=== PATIENT | female | born 1970 | race Two or more races ===

== ENCOUNTER 2025-05-17 22:23 | Inpatient (IN) | payer OTHER ==
[~2025-05-17] VITALS: Ht 152.4 cm; Wt 169.6 kg
--- NOTE | 2025-05-17 22:34 | NUR ---
PTE REFIERE INFLAMACION EN EXTREMIDADES INFERIORES, INAPETENCIA E ICTERICIA.
[2025-05-17] MEDS ORDERED: NITROGLYCERIN IN 5 % DEXTROSE 250 ML IV SCH (23:19)
[2025-05-17] MEDS ORDERED: 0.9 % SODIUM CHLORIDE 1,000 ML IV ONE (23:30)
[2025-05-17] MEDS ORDERED: NITROGLYCERIN IN 5 % DEXTROSE 50 MG/250 ML BOTTLE IV ONE (23:32)
[2025-05-18] MEDS ORDERED: LEVALBUTEROL HCL 0.63 MG/3 ML SOLUTION IH ONE (00:24)
[2025-05-18] MEDS ORDERED: LEVALBUTEROL HCL 1.25 MG/3 ML SOLUTION IH SCH ×2 (01:00→18:00)
[2025-05-18 01:20] LABS: BASO % 0.6 % (0.1-1.2); EOS # 0.03 (0.04-0.54); EOS % 0.4 % (0.7-7.0); LYMPH # 1.02 (1.18-3.74); LYMPH % 13.1 % (19.3-53.1); MEAN PLATELET VOLUME 11.00 fl (9.4-12.4); MONO # 0.89 (0.24-0.82); MONO % 11.4 % (4.7-12.5); NEUT # 5.38 (1.56-6.13); NEUT % 68.9 % (34.0-71.1); RED CELL DISTRIBUTION WIDTH 22.0 % (11.6-14.4)
--- NOTE | 2025-05-18 01:25 | NUR ---
PTE EVALUIADA POR EL LA MARCO SALINAS QUIEN ORDENA TRATAMIENTO LA CUAL SE EJECUTA. SE COMIENZA EN TRIDIL 50/250. SE MANTIENE BAJO OBSERVACION.
[2025-05-18 01:44] LABS: INR 1.46
[2025-05-18 01:51] LABS: BUN CREA RATIO 21.0 (7.0-25.0); CREATININE SERUM 1.57 mg/dL (0.55-1.02); GFR 34.2; GLUCOSE FASTING 85.0 mg/dL (65-100)
[2025-05-18 02:17] LABS: OSMOLALITY SERUM 256.0 MOSM/KG (275-295)
[2025-05-18 02:18] LABS: ALT/SGPT 240.0 U/L (12-78); AST/SGOT 573.0 U/L (15-37)
[2025-05-18 02:20] LABS: GLOBULINA 2.3 G/DL (2.4-3.5)
[2025-05-18 02:24] LABS: BILIRUBIN TOTAL 42.46 mg/dL (0.3-1.2)
[2025-05-18 02:26] LABS: BILIRUBIN,CONJUGATED 31.48 mg/dL (0.0-0.2)
[2025-05-18 02:59] LABS: BAND MAN 8.0 %; EOSINOPHIL MAN 1.0 %; LYMPHOCYTE MAN 15.0 %; MONOCYTE MAN 10.0 %; NEUTROPHILS MAN 66.0 %
[2025-05-18 05:56] LABS: URINE APPEARANCE Cloudy; URINE BILIRRUBIN Large (NEGATIVE); URINE BLOOD Negative; URINE COLOR Dark Yellow; URINE GLUCOSE Negative (NEGATIVE); URINE KETONE Negative (NEGATIVE); URINE LEUKOCYTE Trace; URINE NITRATE Negative; URINE PROTEIN Trace (NEGATIVE); URINE UROBILINOGEN 0.2 E.U./dl
[2025-05-18 05:59] LABS: URINE BACTERIA 21.5 uL (0.0-1933); URINE EPITHELIAL CELLS 12.7 uL (0.0-38.8); URINE RBC 19.6 uL (0.0-20.8); URINE WBC 6.3 uL (0.0-23.2)
[2025-05-18 06:01] LABS: URINE CAST 1.31 uL (0.0-1.40)
[2025-05-18] MEDS ORDERED: LIDOCAINE HCL 1% 10ML VIAL ONE (07:42)
[2025-05-18] MEDS ORDERED: LEVALBUTEROL HCL 1.25 MG/3 ML SOLUTION IH ONE (08:14)
--- NOTE | 2025-05-18 09:02 | NUR ---
PACIENTE CON OEDEN MEDICA DE TRIDIL Y LASIX, LA CUAL NO SE LE ADMINISTRA POR LA PRESIONES ARTERIALES BAJAS, SE NOTIFICA.
[2025-05-18 12:43] VITALS: BP 103/95
[2025-05-18] MEDS ORDERED: INSULIN LISPRO 1,000 UNIT/10 ML UNITS SUBCUTANEO PRN (12:45)
[2025-05-18] MEDS ORDERED: DEXTROSE 50 % IN WATER 0.5 G/ML DISP.SYRIN IV PRN (12:45)
[2025-05-18] MEDS ORDERED: GUAIFEN/DEXTROMETHORPHAN/PE 10 ML BLIST.PACK PO ONE (12:46)
[2025-05-18] MEDS ORDERED: MORPHINE SULFATE 2 MG/ML SYRINGE IV PRN (13:15)
[2025-05-18 14:25] LABS: COVID-19 AG NEGATIVE (NEGATIVE)
[2025-05-18 15:35] VITALS: BP 104/58; O2SAT 96
[2025-05-18] MEDS ORDERED: IPRATROPIUM BROMIDE 0.5 MG/2.5 ML AMPUL.NEB IH SCH (18:00)
[2025-05-18 18:05] VITALS: BP 108/72; O2SAT 95
[2025-05-18] MEDS ORDERED: MULTIVIT INFUSN,ADULT 4,VIT K 10 ML VIAL IV NR (19:00)
[2025-05-18] MEDS ORDERED: METOCLOPRAMIDE HCL 5 MG/ML VIAL IV SCH (21:00)
[2025-05-18] MEDS ORDERED: PANTOPRAZOLE SODIUM 40 MG/VIAL VIAL IV SCH (21:00)
[2025-05-18] MEDS ORDERED: INSULIN GLARGINE,HUM.REC.ANLOG 1,000 UNITS/10 ML UNITS SUBCUTANEO SCH (21:00)
[2025-05-19] VITALS (7 sets, daily range): BP systolic 86–95; BP diastolic 60–68; O2SAT 90–99
[2025-05-19] MEDS ORDERED: SPIRONOLACTONE 25 MG TABLET PO SCH (09:00)
[2025-05-19] MEDS ORDERED: MULTIVIT INFUSN,ADULT 4,VIT K 10 ML VIAL IV SCH (09:00)
[2025-05-19] MEDS ORDERED: VITAMIN B COMPLEX/LYSINE 15 ML BLIST.PACK PO SCH (09:00)
[2025-05-19] MEDS ORDERED: 0.9 % SODIUM CHLORIDE 1,000 ML IV SCH (09:00)
[2025-05-19 17:54] LABS: BASO % 0.3 % (0.1-1.2); EOS # 0.01 (0.04-0.54); EOS % 0.1 % (0.7-7.0); LYMPH # 0.87 (1.18-3.74); LYMPH % 10.0 % (19.3-53.1); MEAN PLATELET VOLUME 10.00 fl (9.4-12.4); MONO # 0.89 (0.24-0.82); MONO % 10.2 % (4.7-12.5); NEUT # 6.24 (1.56-6.13); NEUT % 71.8 % (34.0-71.1); RED CELL DISTRIBUTION WIDTH 22.0 % (11.6-14.4)
[2025-05-19 18:24] LABS: AST/SGOT 905.0 U/L (15-37); BUN CREA RATIO 15.0 (7.0-25.0); CREATININE SERUM 3.67 mg/dL (0.55-1.02); GFR 12.84; GLUCOSE FASTING 145.0 mg/dL (65-100)
[2025-05-19 18:53] LABS: BAND MAN 6.0 %; BASOPHIL MAN 2.0 %; METAMYELOCYTE 2.0 %; MONOCYTE MAN 7.0 %; MYELOCYTE 3.0 %; PROMYELOCYTE 1.0 %
[2025-05-19 18:56] LABS: LYMPHOCYTE MAN 9.0 %
[2025-05-19 19:00] LABS: NEUTROPHILS MAN 69.0 %
[2025-05-19 19:09] LABS: OSMOLALITY SERUM 264.0 MOSM/KG (275-295)
[2025-05-19 19:10] LABS: ALT/SGPT 295.0 U/L (12-78); GLOBULINA 1.6 G/DL (2.4-3.5)
[2025-05-19 19:32] LABS: BILIRUBIN TOTAL 42.95 mg/dL (0.3-1.2)
[2025-05-19] MEDS ORDERED: CLONAZEPAM 0.5 MG TABLET PO SCH (21:00)
[2025-05-20] VITALS (8 sets, daily range): BP systolic 92–115; BP diastolic 66–73; O2SAT 95–98
[2025-05-20 06:14] LABS: BASO % 0.5 % (0.1-1.2); EOS # 0.02 (0.04-0.54); EOS % 0.2 % (0.7-7.0); LYMPH # 0.97 (1.18-3.74); LYMPH % 11.8 % (19.3-53.1); MEAN PLATELET VOLUME 11.00 fl (9.4-12.4); MONO # 0.88 (0.24-0.82); MONO % 10.7 % (4.7-12.5); NEUT # 5.69 (1.56-6.13); NEUT % 69.1 % (34.0-71.1); RED CELL DISTRIBUTION WIDTH 22.3 % (11.6-14.4)
[2025-05-20 06:56] LABS: AST/SGOT 884.0 U/L (15-37); GLOBULINA 1.3 G/DL (2.4-3.5); GLUCOSE FASTING 112.0 mg/dL (65-100)
[2025-05-20 07:17] LABS: ALT/SGPT 280.0 U/L (12-78); BUN CREA RATIO 14.0 (7.0-25.0); GFR 10.52; OSMOLALITY SERUM 270.0 MOSM/KG (275-295)
[2025-05-20 07:19] LABS: BILIRUBIN TOTAL 41.66 mg/dL (0.3-1.2); CREATININE SERUM 4.36 mg/dL (0.55-1.02)
[2025-05-20 07:34] LABS: BAND MAN 6.0 %; EOSINOPHIL MAN 1.0 %; LYMPHOCYTE MAN 21.0 %; MONOCYTE MAN 9.0 %; NEUTROPHILS MAN 59.0 %
[2025-05-20] MEDS ORDERED: 0.9 % SODIUM CHLORIDE 1,000 ML IV SCH (09:00)
[2025-05-20] MEDS ORDERED: MORPHINE SULFATE 2 MG/ML SYRINGE IV PRN (16:45)
[2025-05-20] MEDS ORDERED: ZOLPIDEM TARTRATE 10 MG TABLET PO SCH (21:00)
[2025-05-21] VITALS (9 sets, daily range): BP systolic 92–98; BP diastolic 64–65; O2SAT 93–99
[2025-05-21 06:47] LABS: BASO % 0.2 % (0.1-1.2); EOS # 0.03 (0.04-0.54); EOS % 0.3 % (0.7-7.0); LYMPH # 0.97 (1.18-3.74); LYMPH % 10.3 % (19.3-53.1); MEAN PLATELET VOLUME 10.30 fl (9.4-12.4); MONO # 0.91 (0.24-0.82); MONO % 9.7 % (4.7-12.5); NEUT # 6.84 (1.56-6.13); NEUT % 73.0 % (34.0-71.1); RED CELL DISTRIBUTION WIDTH 22.5 % (11.6-14.4)
[2025-05-21 07:29] LABS: BAND MAN 9.0 %; LYMPHOCYTE MAN 18.0 %; METAMYELOCYTE 1.0 %; MONOCYTE MAN 3.0 %; NEUTROPHILS MAN 68.0 %
[2025-05-21 07:40] LABS: GLUCOSE FASTING 72.0 mg/dL (65-100); OSMOLALITY SERUM 268.0 MOSM/KG (275-295)
[2025-05-21 07:47] LABS: BUN CREA RATIO 14.0 (7.0-25.0); GFR 8.17
[2025-05-21 07:48] LABS: CREATININE SERUM 5.43 mg/dL (0.55-1.02)
[2025-05-21] MEDS ORDERED: PANTOPRAZOLE SODIUM 40 MG TABLET.DR PO SCH (21:00)
[2025-05-22] VITALS (8 sets, daily range): BP systolic 60–94; BP diastolic 48–49; O2SAT 91–98
[2025-05-23 00:13] VITALS: O2SAT 95
[2025-05-23] MEDS ORDERED: MORPHINE SULFATE 2 MG/ML SYRINGE IV PRN (00:30)
[2025-05-23 01:20] VITALS: BP 140/80; O2SAT 95
[2025-05-23 05:44] VITALS: O2SAT 96
[2025-05-23 06:48] VITALS: O2SAT 95
== END 2025-05-23 09:11 | disposition expired | DRG 436 ==
LOC: ER 22:23 → MEDJ 05-18 13:03
PROVIDERS: General Practice; Internal Medicine Nephrology; ADMIT Student in an Organized Health Care Education/Training Program; ATTEND Student in an Organized Health Care Education/Training Program
PROC: 3E0F7GC Introduction of Other Therapeutic Substance into Respiratory Tract, Via Natural or Artificial Opening (ICD-10-PCS; 2025-05-18)
PROC: 05HV33Z Insertion of Infusion Device into Left Face Vein, Percutaneous Approach (ICD-10-PCS; principal; 2025-05-19)
PROC: 4A12X4Z Monitoring of Cardiac Electrical Activity, External Approach (ICD-10-PCS; 2025-05-19)
DX: C78.7 Secondary malignant neoplasm of liver and intrahepatic bile duct (principal); C78.00 Secondary malignant neoplasm of unspecified lung; C79.51 Secondary malignant neoplasm of bone; E87.1 Hypo-osmolality and hyponatremia; N17.8 Other acute kidney failure; I50.9 Heart failure, unspecified; C78.89 Secondary malignant neoplasm of other digestive organs; C50.411 Malignant neoplasm of upper-outer quadrant of right female breast; E86.0 Dehydration; E88.09 Other disorders of plasma-protein metabolism, not elsewhere classified; D63.0 Anemia in neoplastic disease; E80.6 Other disorders of bilirubin metabolism; E11.9 Type 2 diabetes mellitus without complications; Z79.4 Long term (current) use of insulin; Z66 Do not resuscitate